=== PATIENT | female | born 1985 | race Caucasian/White ===

== ENCOUNTER 2018-06-15 20:12 | Emergency (ER) | payer OTHER, SELFPAY ==
[2018-06-15 20:32] VITALS: BP 113/73; PULSE 73; RESP 18; TEMP 36.8; O2SAT 98; BMI 32.5
--- NOTE | 2018-06-15 20:41 | DI.RAD.S_ITS ---
PROCEDURE: XR HAND RT 2V INDICATIONS: BROKE LIGHT TO HAND TECHNIQUE: 3 views of the hand(s) acquired. COMPARISON: None. FINDINGS: Bones: No fractures or dislocations. Carpal bones are normally aligned. No suspicious bony lesions. Soft tissues: No suspicious soft tissue calcifications. No radiopaque foreign body. IMPRESSION: No acute bony abnormality of the right hand. No evidence of radiopaque foreign body. Dictated by: Marc Taveras M.D. on 06/15/2018 at 21:52 Approved by: Marc Taveras M.D. on 06/15/2018 at 21:53
--- NOTE | 2018-06-15 21:45 | ED.WOUNDLAC ---
HPI - Wound/Laceration General Chief Complaint: Wound/Laceration Stated Complaint: RT HAND CUT Time Seen by Provider: 06/15/18 21:45 Source: patient Mode of arrival: ambulatory Limitations: no limitations History of Present Illness HPI narrative: 32-year-old female who was changing the light and only ample in the shade fell off and broke. Cutting herself on the back of her right hand. She is up-to-date on tetanus. Has done nothing for the wound prior to arrival. Related Data Allergies Allergy/AdvReac Type Severity Reaction Status Date / Time No Known Drug Allergies Allergy Verified 06/15/18 20:39 Review of Systems Musculoskeletal Denies myalgias, Denies arthralgias and Denies tingling Integumentary/Breasts Comments: Cut to the back of the right hand Neurologic Denies tingling and Denies paresthesias Hematologic/Lymphatic Denies easy bleeding and Denies easy bruising [facility] Medical History Healthy adult (Acute) Social History Smoking Status: Never smoker Social History Smoking Status: Never smoker Exam Initial Vital Signs Initial Vital Signs: Vital Signs Temperature 98.3 F 06/15/18 20:32 Pulse Rate 73 06/15/18 20:32 Respiratory Rate 18 06/15/18 20:32 Blood Pressure 113/73 06/15/18 20:32 Pulse Oximetry 98 06/15/18 20:32 Const General: cooperative, comfortable, well developed, well groomed and No acute distress Orientation: alert, awake and oriented x3 Skin Other: Patient with a 2 cm cut on the dorsum of the right hand at the base of the thumb. No active bleeding. Neuro Sensory Exam: no sensory deficits noted Extrem General: normal to inspection and capillary refill normal Psych Appearance: grossly normal and well kempt Procedures Laceration Repair Laceration 1: Site: hand Side (If applicable): right Size (cm): 2 Description: linear Depth: simple, single layer Local Anesthetic: lidocaine 1% Amount of anesthesia used (mL): 2 Pre-repair: wound explored and deep structures intact Skin layer closed with: nylon Size (cm): 3-0 Number of sutures: 2 Technique: simple, interrupted Course Orders Ordered: ED Orders 06/15/18 20:41 XR hand RT min 3V Stat Vital Signs - 8 hr 06/15/18 20:32 06/15/18 23:02 Temperature 98.3 F Pulse Rate 73 64 Respiratory Rate 18 17 Blood Pressure 113/73 Blood Pressure [Left Arm] 137/86 Pulse Oximetry 98 100 MDM - Wound/Laceration MDM Narrative Medical decision making narrative: Neurovascular intact. Wound closed as above. Patient given care instructions and return precautions. She expressed understanding and agreement with plan. Discharge Plan Departure Patient Disposition: Home Clinical Impression: Laceration Discharge Date/Time: 06/15/18 23:04 Interventions: ED Discharge Assessment Last Done: 06/15/18 23:04 Instructions: DI for Laceration Repair Activity Restrictions/Additional Instructions: Keep the bandage on for the next 24 hr. After that you can take it off. You can wash your hand like normal. He can use soap and water like normal. The stitches do need to be removed in 7-10 days. Return to the emergency department for any new or worsening symptoms
[2018-06-15 23:02] VITALS: BP 137/86; PULSE 64; RESP 17; O2SAT 100
== END 2018-06-15 23:04 | disposition home or self-care (01) ==
PROVIDERS: Emergency Provider Emergency Medicine
DX: S61.411A Laceration without foreign body of right hand, initial encounter (principal)
CPT/HCPCS: 12001; 73130; 99283

== ENCOUNTER 2018-08-29 15:17 | Emergency (ER) | payer OTHER, SELFPAY ==
[2018-08-29 15:25] VITALS: BP 124/78; PULSE 68; RESP 15; TEMP 36.7; O2SAT 99; BMI 34.7
--- NOTE | 2018-08-29 15:37 | ED.SOB ---
HPI - SOB/Dyspnea <Maddie Ford PA-C - Last Filed: 08/29/18 20:45> General Chief Complaint: Shortness of Breath/Dyspnea Stated Complaint: states hurts to breath Time Seen by Provider: 08/29/18 15:26 Source: patient Mode of arrival: ambulatory Limitations: no limitations History of Present Illness This 32-year-old female comes in to ED today secondary to cough and wheeze, with chest discomfort. She states that 6 months ago, she had an acute illness with GI symptoms and productive cough. She states that she got better, but the cough has been waxing and waning since then, never fully resolved. She states that her last 2 or 3 days, she has had worsening cough again, bringing up some white phlegm that has a bad taste. She states that yesterday she was out working on her riding lawnmower when she felt a burning sensation in her her airway ?not like my heart, but like breathing in cold air?. She states that she could feel some crackling wheezing in her lungs last night, denies acute dyspnea but chest feels somewhat tight at times. She is not having any pain currently. She states that she has not had any fever. She has had some postnasal drip and sneezing consistent with her previous seasonal allergies. She states she also has a history of some asthma with her allergies. She denies any swelling or pain in her extremities. Denies personal or family history of blood clots. She use to smoke sometime ago. She denies any possibility of , menses ended yesterday. Related Data Allergies Allergy/AdvReac Type Severity Reaction Status Date / Time No Known Drug Allergies Allergy Verified 08/29/18 15:25 Review of Systems <Maddie Ford PA-C - Last Filed: 08/29/18 20:45> Review of Systems ROS Unobtainable: All systems reviewed & are unremarkable except as noted in HPI and below PFSH <Maddie Ford PA-C - Last Filed: 08/29/18 20:45> Medical History (Updated 08/29/18 @ 16:58 by Maddie Ford PA-C) Asthma due to seasonal allergies (Chronic) Surgical History (Updated 08/29/18 @ 15:53 by Maddie Ford PA-C) Status post (Resolved) Status post breast augmentation (Resolved) Social History (Updated 08/29/18 @ 15:53 by Maddie Ford PA-C) Smoking Status: Former smoker Social History (Updated 08/29/18 @ 15:53 by Maddie Ford PA-C) Smoking Status: Former smoker Exam <Maddie Ford PA-C - Last Filed: 08/29/18 20:45> Narrative Exam Narrative: GENERAL APPEARANCE: Patient sitting comfortably, in no distress. HEAD: No sinus TTP. EYES: PERRL, EOMI. EARS: Normal auditory canals, TMS intact with normal light reflexes. ORAL CAVITY: Normal oropharynx. THROAT: PND noted, no erythema or exudate NECK/THYROID: Neck supple, full range of motion, no cervical lymphadenopathy. LUNGS: Clear to auscultation bilaterally aside from a few faint lower lobe crackles HEART: RRR without murmur, nl S1, S2, no S3 or S4. Initial Vital Signs Initial Vital Signs: Vital Signs Temperature 98.0 F 08/29/18 15:25 Pulse Rate 68 08/29/18 15:25 Respiratory Rate 15 08/29/18 15:25 Blood Pressure 124/78 08/29/18 15:25 Pulse Oximetry 99 08/29/18 15:25 <Kamlesh Steve DO - Last Filed: 08/31/18 08:19> Initial Vital Signs Initial Vital Signs: Vital Signs Temperature 98.0 F 08/29/18 15:25 Pulse Rate 68 08/29/18 15:25 Respiratory Rate 15 08/29/18 15:25 Blood Pressure 124/78 08/29/18 15:25 Pulse Oximetry 99 08/29/18 15:25 Course <Maddie Ford PA-C - Last Filed: 08/29/18 20:45> Additional Information: Patient is feeling markedly improved after nebulizer treatments and normal breath sounds on repeat exam. History consistent with reactive airways following viral illness and also exacerbation due to seasonal allergies. Advised continuing albuterol as needed as well as adding OTC antihistamine, and follow up with PCP in a few days. She is agreeable with this as well as plan to return if any acutely worsening symptoms in the interim Orders Ordered: Discontinued Medications Albuterol (Ventolin Hfa Prepack) 1 box [facility] [place] [place] Stop: 08/29/18 16:40 Last Admin: 08/29/18 16:49 Dose: 1 box Albuterol/Ipratropium (Duoneb) 3 ml INH NOW ONE Stop: 08/29/18 15:42 Last Admin: 08/29/18 15:43 Dose: 3 ml Vital Signs - 8 hr 08/29/18 15:25 08/29/18 15:43 08/29/18 15:48 Temperature 98.0 F 98.5 F Pulse Rate 68 70 72 Respiratory Rate 15 20 15 Blood Pressure 124/78 Blood Pressure [Left Arm] 119/88 Pulse Oximetry 99 98 100 08/29/18 16:44 Temperature 98.2 F Pulse Rate 81 Respiratory Rate 15 Blood Pressure 149/98 H Blood Pressure [Left Arm] Pulse Oximetry 99 <Kamlesh Steve DO - Last Filed: 08/31/18 08:19> Orders Ordered: Discontinued Medications Albuterol (Ventolin Hfa Prepack) 1 box [facility] SEEINSTR ONE Stop: 08/29/18 16:40 Last Admin: 08/29/18 16:49 Dose: 1 box Albuterol/Ipratropium (Duoneb) 3 ml INH NOW ONE Stop: 08/29/18 15:42 Last Admin: 08/29/18 15:43 Dose: 3 ml Vital Signs - 8 hr 08/29/18 15:25 08/29/18 15:43 08/29/18 15:48 Temperature 98.0 F 98.5 F Pulse Rate 68 70 72 Respiratory Rate 15 20 15 Blood Pressure 124/78 Blood Pressure [Left Arm] 119/88 Pulse Oximetry 99 98 100 08/29/18 16:44 Temperature 98.2 F Pulse Rate 81 Respiratory Rate 15 Blood Pressure 149/98 H Blood Pressure [Left Arm] Pulse Oximetry 99 MDM - SOB/Dyspnea <Maddie Ford PA-C - Last Filed: 08/29/18 20:45> Imaging Data Chest x-ray: Radiologist's impression: [address] [address] XRay Report Signed Patient: Juani Jo RMR#: [id number] : 1985Acct:[id number] Age/Sex: 32 / FDate of Service: 08/29/18 Loc: ED Accession Number: [id number] Procedure: XR chest 2V Ordering Provider: Maddie Ford P.A-C PROCEDURE: XR CHEST 2V INDICATIONS: chronic cough TECHNIQUE: 2 views of the chest were acquired. COMPARISON: None. FINDINGS: Surgical changes and devices: None. Lungs and pleura: Lungs are clear. No pleural effusions or pneumothorax. Mediastinum: Mediastinal contours are normal. Heart size is normal. Bones and chest wall: No suspicious bony abnormalities. Soft tissues appear unremarkable. IMPRESSION: Normal chest plain films. No infiltrates. Dictated by: Karan Kim M.D. on 08/29/2018 at 15:19 Approved by: Karan Kim M.D. on 08/29/2018 at 15:20 ECG Data Attestation: I personally reviewed and interpreted this ECG as follows: (Sinus bradycardia with rate 55, normal axis) Prior ECG tracings: not available for review Discharge Plan Departure Patient Disposition: Home Clinical Impression: Asthma due to seasonal allergies Discharge Date/Time: 08/29/18 17:10 Interventions: ED Discharge Assessment Last Done: 08/29/18 17:09 Instructions: Allergic Rhinitis, DI for Asthma -- Adult Activity Restrictions/Additional Instructions: Given your history of being sick and then developing chronic cough, discomfort and breathing difficulty, I think this is due to an asthma type of reaction that has been exacerbated by allergies. You can return home since you are feeling better after the breathing treatments. There was no acute problem found on your chest x-ray. Please start [id number] Zyrtec (cetirizine, 10 mg), once daily to help with your nasal symptoms and postnasal drip as this may help with the cough as well. Use the albuterol inhaler that we gave you with the spacer as often as needed for tight chest, cough or wheeze. Follow-up with your PCP in the next few days to assess your progress and determine whether you need additional treatment or medication. Return to the ED as we talked about if you have any acutely worsening symptoms again The best of luck with your fertility treatments. Referrals: [email or web address] [Provider Group] <Kamlesh Steve DO - Last Filed: 08/31/18 08:19> Cosign ED Attending Rangelature Attestation: I was immediately available in the department for consultation. Documentation has been reviewed. I agree with assessment and plan.
[2018-08-29 15:43] VITALS: BP 119/88; PULSE 70; RESP 20; TEMP 36.9; O2SAT 98
[2018-08-29] MEDS: ALBUTEROL/IPRATROPIUM 3 ML AMPUL INH (15:43)
[2018-08-29 15:48] VITALS: PULSE 72; RESP 15; O2SAT 100
--- NOTE | 2018-08-29 15:54 | ED_ITS ---
HPI - SOB/Dyspnea <Maddie Ford PA-C - Last Filed: 08/29/18 20:45> General Chief Complaint: Shortness of Breath/Dyspnea Stated Complaint: states hurts to breath Time Seen by Provider: 08/29/18 15:26 Source: patient Mode of arrival: ambulatory Limitations: no limitations History of Present Illness This 32-year-old female comes in to ED today secondary to cough and wheeze, with chest discomfort. She states that 6 months ago, she had an acute illness with GI symptoms and productive cough. She states that she got better, but the cough has been waxing and waning since then, never fully resolved. She states that her last 2 or 3 days, she has had worsening cough again, bringing up some white phlegm that has a bad taste. She states that yesterday she was out working on her riding lawnmower when she felt a burning sensation in her her airway ?not like my heart, but like breathing in cold air?. She states that she could feel some crackling wheezing in her lungs last night, denies acute dyspnea but chest feels somewhat tight at times. She is not having any pain currently. She states that she has not had any fever. She has had some postnasal drip and sneezing consistent with her previous seasonal allergies. She states she also has a history of some asthma with her allergies. She denies any swelling or pain in her extremities. Denies personal or family history of blood clots. She use to smoke sometime ago. She denies any possibility of , menses ended yesterday. Related Data Allergies Allergy/AdvReac Type Severity Reaction Status Date / Time No Known Drug Allergies Allergy Verified 08/29/18 15:25 Review of Systems <Maddie Ford PA-C - Last Filed: 08/29/18 20:45> Review of Systems ROS Unobtainable: All systems reviewed & are unremarkable except as noted in HPI and below PFSH <Maddie Ford PA-C - Last Filed: 08/29/18 20:45> Medical History (Updated 08/29/18 @ 16:58 by Maddie Ford PA-C) Asthma due to seasonal allergies (Chronic) Surgical History (Updated 08/29/18 @ 15:53 by Maddie Ford PA-C) Status post (Resolved) Status post breast augmentation (Resolved) Social History (Updated 08/29/18 @ 15:53 by Maddie Ford PA-C) Smoking Status: Former smoker Social History (Updated 08/29/18 @ 15:53 by Maddie Ford PA-C) Smoking Status: Former smoker Exam <Maddie Ford PA-C - Last Filed: 08/29/18 20:45> Narrative Exam Narrative: GENERAL APPEARANCE: Patient sitting comfortably, in no distress. HEAD: No sinus TTP. EYES: PERRL, EOMI. EARS: Normal auditory canals, TMS intact with normal light reflexes. ORAL CAVITY: Normal oropharynx. THROAT: PND noted, no erythema or exudate NECK/THYROID: Neck supple, full range of motion, no cervical lymphadenopathy. LUNGS: Clear to auscultation bilaterally aside from a few faint lower lobe crackles HEART: RRR without murmur, nl S1, S2, no S3 or S4. Initial Vital Signs Initial Vital Signs: Vital Signs Temperature 98.0 F 08/29/18 15:25 Pulse Rate 68 08/29/18 15:25 Respiratory Rate 15 08/29/18 15:25 Blood Pressure 124/78 08/29/18 15:25 Pulse Oximetry 99 08/29/18 15:25 <Kamlesh Steve DO - Last Filed: 08/31/18 08:19> Initial Vital Signs Initial Vital Signs: Vital Signs Temperature 98.0 F 08/29/18 15:25 Pulse Rate 68 08/29/18 15:25 Respiratory Rate 15 08/29/18 15:25 Blood Pressure 124/78 08/29/18 15:25 Pulse Oximetry 99 08/29/18 15:25 Course <Maddie Ford PA-C - Last Filed: 08/29/18 20:45> Additional Information: Patient is feeling markedly improved after nebulizer treatments and normal breath sounds on repeat exam. History consistent with reactive airways following viral illness and also exacerbation due to seasonal allergies. Advised continuing albuterol as needed as well as adding OTC antihistamine, and follow up with PCP in a few days. She is agreeable with this as well as plan to return if any acutely worsening symptoms in the interim Orders Ordered: Discontinued Medications Albuterol (Ventolin Hfa Prepack) 1 box [facility] [place] Stop: 08/29/18 16:40 Last Admin: 08/29/18 16:49 Dose: 1 box Albuterol/Ipratropium (Duoneb) 3 ml INH NOW ONE Stop: 08/29/18 15:42 Last Admin: 08/29/18 15:43 Dose: 3 ml Vital Signs - 8 hr 08/29/18 15:25 08/29/18 15:43 08/29/18 15:48 Temperature 98.0 F 98.5 F Pulse Rate 68 70 72 Respiratory Rate 15 20 15 Blood Pressure 124/78 Blood Pressure [Left Arm] 119/88 Pulse Oximetry 99 98 100 08/29/18 16:44 Temperature 98.2 F Pulse Rate 81 Respiratory Rate 15 Blood Pressure 149/98 H Blood Pressure [Left Arm] Pulse Oximetry 99 <Kamlesh Steve DO - Last Filed: 08/31/18 08:19> Orders Ordered: Discontinued Medications Albuterol (Ventolin Hfa Prepack) 1 box [facility] SEEINSTR ONE Stop: 08/29/18 16:40 Last Admin: 08/29/18 16:49 Dose: 1 box Albuterol/Ipratropium (Duoneb) 3 ml INH NOW ONE Stop: 08/29/18 15:42 Last Admin: 08/29/18 15:43 Dose: 3 ml Vital Signs - 8 hr 08/29/18 15:25 08/29/18 15:43 08/29/18 15:48 Temperature 98.0 F 98.5 F Pulse Rate 68 70 72 Respiratory Rate 15 20 15 Blood Pressure 124/78 Blood Pressure [Left Arm] 119/88 Pulse Oximetry 99 98 100 08/29/18 16:44 Temperature 98.2 F Pulse Rate 81 Respiratory Rate 15 Blood Pressure 149/98 H Blood Pressure [Left Arm] Pulse Oximetry 99 MDM - SOB/Dyspnea <Maddie Ford PA-C - Last Filed: 08/29/18 20:45> Imaging Data Chest x-ray: Radiologist's impression: [address] [address] XRay Report Signed Patient: Juani Jo RMR#: [id number] : 1985Acct:[id number] Age/Sex: 32 / FDate of Service: 08/29/18 Loc: ED Accession Number: [id number] Procedure: XR chest 2V Ordering Provider: Maddie Ford P.A-C PROCEDURE: XR CHEST 2V INDICATIONS: chronic cough TECHNIQUE: 2 views of the chest were acquired. COMPARISON: None. FINDINGS: Surgical changes and devices: None. Lungs and pleura: Lungs are clear. No pleural effusions or pneumothorax. Mediastinum: Mediastinal contours are normal. Heart size is normal. Bones and chest wall: No suspicious bony abnormalities. Soft tissues appear unremarkable. IMPRESSION: Normal chest plain films. No infiltrates. Dictated by: Karan Kim M.D. on 08/29/2018 at 15:19 Approved by: Karan Kim M.D. on 08/29/2018 at 15:20 ECG Data Attestation: I personally reviewed and interpreted this ECG as follows: (Sinus bradycardia with rate 55, normal axis) Prior ECG tracings: not available for review Discharge Plan Departure Patient Disposition: Home Clinical Impression: Asthma due to seasonal allergies Discharge Date/Time: 08/29/18 17:10 Interventions: ED Discharge Assessment Last Done: 08/29/18 17:09 Instructions: Allergic Rhinitis, DI for Asthma -- Adult Activity Restrictions/Additional Instructions: Given your history of being sick and then developing chronic cough, discomfort and breathing difficulty, I think this is due to an asthma type of reaction that has been exacerbated by allergies. You can return home since you are feeling better after the breathing treatments. There was no acute problem found on your chest x-ray. Please start [id number] Zyrtec (cetirizine, 10 mg), once daily to help with your nasal symptoms and postnasal drip as this may help with the cough as well. Use the albuterol inhaler that we gave you with the spacer as often as needed for tight chest, cough or wheeze. Follow-up with your PCP in the next few days to assess your progress and determine whether you need additional treatment or medication. Return to the ED as we talked about if you have any acutely worsening symptoms again The best of luck with your fertility treatments. Referrals: [facility] [Provider Group] <Kamlesh Steve DO - Last Filed: 08/31/18 08:19> Cosign ED Attending Rangelature Attestation: I was immediately available in the department for consultation. Documentation has been reviewed. I agree with assessment and plan.
[2018-08-29 16:44] VITALS: BP 149/98; PULSE 81; RESP 15; TEMP 36.8; O2SAT 99
[2018-08-29] MEDS: ALBUTEROL HFA PREPACK 1 BOX MISC (16:49)
== END 2018-08-29 17:10 | disposition home or self-care (01) ==
PROVIDERS: Emergency Provider Internal Medicine
DX: J45.909 Unspecified asthma, uncomplicated (principal); R07.89 Other chest pain
CPT/HCPCS: 71046; 93005; 94150; 94640; 99283

== ENCOUNTER → 2019-06-01 14:05 | Outpatient (CLI) | payer OTHER, SELFPAY ==
[2019-06-02 13:02] LABS: Strep Grp B PCR NEG for Grp B Strep
== END ==
PROVIDERS: Visit Provider Obstetrics & Gynecology
DX: Z34.83 Encounter for supervision of other normal pregnancy, third trimester (principal); Z3A.36 36 weeks gestation of pregnancy
CPT/HCPCS: 87653

== ENCOUNTER 2019-06-01 15:00 | Outpatient (CLI) | payer OTHER, SELFPAY | END 2019-06-01 15:41 | disposition home or self-care (01) | LOC: OB 06-02 08:23 | PROVIDERS: Referring Provider Obstetrics & Gynecology; Visit Provider Obstetrics & Gynecology | DX: O36.8330 Maternal care for abnormalities of the fetal heart rate or rhythm, third trimester, not applicable or unspecified (principal); Z3A.36 36 weeks gestation of pregnancy | CPT/HCPCS: 59025; 87653; G0378; G0379 ==

== ENCOUNTER → 2019-06-08 14:35 | Outpatient (CLI) | payer OTHER, SELFPAY ==
--- NOTE | 2019-06-08 14:37 | DI.US.S_ITS ---
PROCEDURE: US OB LIMITED INDICATIONS: EFW; SHEA OUTSIDE/PRIOR DATING DATA: Last menstrual period (LMP): Not applicable. IVF. LMP-based estimated date of delivery (RENETTA): 06/29/19. First dating scan (date and location): Outside examination, not available. Estimated date of delivery (RENETTA) from first dating scan: 05/24/19. TECHNIQUE: Real-time scanning was performed of the fetus, with image documentation and biometric measurements. Endovaginal scanning: Not performed COMPARISON: None. FINDINGS: General: A single living intrauterine gestation is present. Presentation: Vertex. Placenta: Placental position is anterior, without previa. Amniotic fluid index: 7.0 cm, normal range is 5-24 cm. heart rate: 122 beats per minute. biometrics: Biparietal diameter: 9.1 cm, 37 weeks zero days Head circumference: 33.5 cm, 38 weeks 3 days Abdominal circumference: 35.8 cm, 39 weeks 5 days Femur length: 7.3 cm, 37 weeks 3 days Estimated gestational age from initial scan: not applicable. Composite gestational age from present scan: 38 weeks one day Estimated weight and percentile: 3582 g, 92nd percentile Measurement variability for biometric dating: +/- 7 days from 14 weeks to 15 weeks 6 days gestation, +/- 10 days from 16 weeks to 21 weeks 6 days gestation, +/- 2 weeks from 22 weeks to 27 weeks 6 days gestation, +/- 3 weeks for 28 weeks gestation or later. weight reference: 4500 g or EFW >90/95% is considered macrosomia or large for gestational age. EFW <10% is small for gestational age. EFW 5% or less is considered intra-uterine growth restriction. Other: Not applicable. IMPRESSION: Single living intrauterine fetus in vertex presentation demonstrating appropriate growth as above Normal SHEA Dictated by: Adan Paz M.D. on 06/08/2019 at 15:24 Approved by: Adan Paz M.D. on 06/08/2019 at 15:27
== END ==
PROVIDERS: PCP Oral & Maxillofacial Surgery; Referring Provider Obstetrics & Gynecology; Visit Provider Obstetrics & Gynecology
DX: O09.813 Supervision of pregnancy resulting from assisted reproductive technology, third trimester (principal); O34.219 Maternal care for unspecified type scar from previous cesarean delivery; Z3A.38 38 weeks gestation of pregnancy
CPT/HCPCS: 76815

== ENCOUNTER 2019-06-27 06:21 | Inpatient (IN) | payer OTHER, SELFPAY ==
--- NOTE | 2019-06-15 19:45 | PM.OBHP.1 ---
OB HPI Date/Time Date of admission: 06/27/19 Date Patient Seen: 06/15/19 Time Patient Seen: 09:19 History of Present Condition Chief complaint: [id number] REPEAT : 3 Para: 2 Estimated Date of Delivery: 06/29/19 Estimated Gestational Age (weeks): 39 Narrative: Juani Jo is a 33 year old female who is being admitted at 39 weeks for a repeat . Her RENETTA is 06/29/2019, calculated from her IVF date. She has a history of x2. Her has been uncomplicated. History of Present care: good care Dating criteria: other (Based on date of transfer of five-day embryo, IVF) Ultrasounds: normal 1st trimester US and normal mid trimester US Obstetrical complications: none Medical complications: none Preadmission Labs Blood type: A (+) positive -: Antibody screen: negative, GBS status: negative and HIV: negative -: Chlamydia screen: not detected and Gonorrhea screen: not detected -: Rubella: immune and Varicella: immune Narrative: 1 hour Glucola normal Prior (ies) History: section x2, both at term [facility] Medical History (Updated 06/01/19 @ 15:05 by Anya Sprague MD) Anxiety (Acute) Asthma due to seasonal allergies (Chronic) Conceived by in vitro fertilization (Acute ~10/11/18) Depression (Acute) Frequent UTI (Acute) In vitro fertilization (Acute ~2018) Ovarian cyst (Acute) conceived through in vitro fertilization (Acute) Surgical History (Updated 04/27/19 @ 19:43 by Anya Sprauge MD) Hx of section complicating (Acute) Status post breast augmentation (Resolved ~2010) Status post (Resolved) [place] teeth extracted (Acute ~2007) Family History (Updated 04/25/19 @ 12:06 by Shannan Chou RN) Grandmother Unknown family medical history Mother Acute Crohn's disease Grandfather Diabetes mellitus Cancer Grandmother Acute Crohn's disease Father Hepatitis C Brother Bipolar 1 disorder Social History (Updated 08/29/18 @ 15:53 by Maddie Ford PA-C) marital status: number of children: 2 household members: spouse and children pets and animals: Yes (cats X 2 and dogs ) education level: college (some) occupational status: employed special [employer] needs: No Smoking Status: Former smoker (off and on socially : more on deployement ) Tobacco: How many years used: 12 second hand exposure: No ( smokes - aware and outside) alcohol intake: former (started at age 17 - stopped 10/21/2018) substance use type: does not use Meds Home Medications and Allergies Home Medications Medication Instructions Recorded Confirmed Type prenat.vits,iris,jus-jnzx-akxje 1 tab PO DAILY #90 tab 04/27/19 06/15/19 Rx Allergies Allergy/AdvReac Type Severity Reaction Status Date / Time No Known Drug Allergies Allergy Verified 06/15/19 08:45 Review of Systems Review of Systems Narrative: Denies leakage of fluid, vaginal bleeding or regular contractions. Feels good movement. Denies shortness of breath, fever or cough. Exam Vital Signs (past 8 hours): On 06/14 BP 120/60 Narrative Exam Narrative: General: Well-appearing female in no acute distress Heart: Regular rate rhythm, negative for audible murmur Lungs: Clear to auscultation bilaterally Abdomen: Gravid, nontender. Fundus nontender, FHT are auscultated in 140s Extremities 1+ pedal edema, no calf tenderness Assessment and Plan Assessment and Plan Assessment and Plan narrative: Thirty-nine week , history of x2, for repeat for delivery scheduled on 06/27/2019 Plan: Repeat section NPO after midnight SCDs in the OR CBC/type and screen to be drawn day of the procedure NST to be performed in L&D prior to the procedure I reviewed section procedure with her. Discussed surgical risks of the procedure including bleeding, infection, injury to internal organs including bowel and urinary system, discuss urinary system includes bladder and ureters. I also discussed small risk of injury to the baby. Discussed risk of blood transfusion if she had heavy bleeding that was life threatening, she confirms that she would desire a blood transfusion if needed. Verbal and written consent obtained
[2019-06-27] VITALS (8 sets, daily range): BP systolic 109–128; BP diastolic 69–79; PULSE 58–82; RESP 9–18; TEMP 36.1; O2SAT 94–99
[2019-06-27] MEDS: LACTATED RINGERS 1,000 ML 1000 ML IV (07:00)
[2019-06-27 07:20] LABS: Add Manual Diff / Slide Review NO; Basophils Absolute Auto 100 /uL (0-100); Basophils Percent Auto 0.9 % (0-2); Eosinophils Absolute Auto 200 /uL (0-450); Eosinophils Percent Auto 1.3 % (2-4); Hematocrit 39.6 % (36-46); Hemoglobin 13.6 g/dL (12.0-16.0); Lymphocytes Absolute Auto 2600 /uL (1100-4500); Lymphocytes Percent Auto 19.4 % (25-40); Mean Corpuscular HGB Conc 34.3 % (30-36); Mean Corpuscular Hemoglobin 32.3 PG (26-34); Mean Corpuscular Volume 94.1 fL (80-100); Monocytes Absolute Auto 1000 /uL (0-900); Monocytes Percent Auto 7.7 % (3-14); Neutrophils Absolute Auto 9500 /uL (1500-7000); Neutrophils Percent Auto 70.7 % (50-75); Platelet Count 181 X10^3/uL (150-400); Red Cell Distribution Width 12.9 % (11.6-14.8); White Blood Cell Count 13.4 X10^3/uL (4.5-11.0)
--- NOTE | 2019-06-27 07:25 | PM.PREOP ---
Pre-operative Note Interval Note History & Physical reviewed/Exam performed by Physician: Yes Changes to H&P: No
[2019-06-27] MEDS: CEFAZOLIN 2 GM/100 ML FROZ.PIGGY IV (08:00)
--- NOTE | 2019-06-27 08:27 | SUR.OPER ---
Supine on Padded OR bed, head on pillow, safety belt at thigh, arms secured on padded arm boards at <90 degrees abduction. Bump under right buttock. Legs uncrossed with pillow under knees, gel pad to heels, tape over blanket to lower legs.
--- NOTE | 2019-06-27 08:27 | SUR.OPER ---
FHT's 134. Cord blood and placenta to OB with L&D Rn.
[2019-06-27] MEDS: LACTATED RINGERS 1,000 ML 100 ML IV ×2 (08:28→09:06)
--- NOTE | 2019-06-27 08:53 | SUR.OPER ---
TOB live male @ [phone].
--- NOTE | 2019-06-27 10:03 | P.OP_ITS ---
Operative Date/Time/Diagnoses Date of procedure: 06/27/19 Time of procedure: 10:00 Pre-op diagnosis: 39 week , prior x2, desires repeat C- section for delivery Post-op diagnosis: same Procedure & Clinicians Procedure: Repeat lower transverse section Same procedure as scheduled: Yes Indications: History of section x 2, desires repeat section for delivery, term Surgeon: Anya Sprague Art Gallery Director: Angela Vidal Click Yes if Unassisted: No Anesthesia Type: Spinal Operative Notes Findings: very thin lower uterine segmant. Normal uterus otherwise and normal tubes and ovaries. Vigorous viable male infant delivered, weighing 9 lb 9 oz Closure Type: primary Specimen(s): other (cord blood to lab) Estimated Blood Loss (mL): 700 Procedure in detail: IV fluids: 2500 ml crystalloid Description of procedure: The patient was transferred from the center to the operating room. After an adequate level of spinal anesthesia was obtained, she was placed in the supine position, Drake catheter was placed, and she was prepped and draped in routine sterile fashion. FHR was auscultated and was normal after the spinal anaesthesia. Time-out was taken and the patient procedure was identified. Anesthesia level was tested and was adequate. A Pfannenstiel skin incision was made in the lower abdomen through her prior transverse skin incision and carried down to the level of the fascia. The fascia was incised in the midline and was extended transversely. The superior and inferior edges of the fascia were elevated and dissected off the rectus muscles with sharp and blunt dissection. The muscles were severely scarred to the fascia and scarred in the midline. There was a slight separation, diathesis superiorly. With palpation through the diastasis, some omentum was noted to be adherent to the inferior peritoneum beneath the muscles superiorly. With care with elevating the muscles, the scar tissue was dissected and the muscles and parietal peritoneum were then further bluntly in the midline. The bladder blade was placed. The visceral peritoneum was elevated off the lower uterus, incised and the bladder flap was bluntly created. The bladder blade retractor was re-placed. The lower uterine segment was noted to be thin over the vertex. A transverse incision was made in the lower uterus and final entry into the uterus was performed with the handle of the scalpel bluntly. The uterine incision was extended transversely with blunt dissection. Some light meconium was noted over the baby's head, but overall fluid appeared clear. The head was not engaged. It was elevated to the uterine incision but would not deliver with fundal cyst ends. A kiwi vacuum was placed and within an initial attempt the head was not delivered with fundal assistance. On palpation it was felt that the incision was a little tight at the level of the muscles yet for the head to deliver through, he uterine incision felt adequate. The Ramachandran scissors were used and a transverse cut was made through her right rectus muscles, approximately 3 cm. Mushroom vacuum was replaced on the head and with vacuum and fundal cyst since, the head was delivered through the incision. Nuchal cord x1 was reduced. Both shoulders were then delivered without difficulty followed by the remainder of the body. Cord was clamped and cut. The cried spontaneously, was vigorous and was shown to the parents prior to handing off to respiratory therapy who was present for delivery for care. Cord blood was obtained a specimen. The placenta was manually removed. It appeared intact with a normal three-vessel cord. Attention was 1st placed to her right rectus muscles as a source of initial heavier bleeding. There was a visible vessel bleeding which was grasped on both sides with a hemostatic. Each side of vessel was ligated with a qfyejh-nx-eejee suture of 3- 0 Vicryl, placed through the muscle and around the vessel. Good hemostasis was obtained in this area. The uterus was brought through the abdominal incision and using a moist laparotomy sponge, was swept of clots and membrane. The uterus was closed in 1 layer with 0 Vicryl, in running locking continuous fashion. The inferior portion of the uterus that needed to be sutured to the superior portion was noted to be extremely thin. Sutures were pulled through gently and the incision was closed in the 1 layer. There was still an area of persistent bleeding on the left side of the incision which was controlled with a xeqocj-fw-caonx suture of 0 Vicryl. Hemostasis was then noted. The tubes and ovaries were inspected and noted to be normal. Posterior to the uterus was suctioned of some minimal blood and fluid. The uterus was placed back into the maternal abdomen. The paracolic gutters were inspected and wiped of some minimal blood and fluid. The anterior cul-de-sac was inspected and some clot was removed. The uterine incision was re- inspected. There was a focal area of some light bleeding along her left uterine incision, and this was controlled with an additional dphrni-hi-tkrcm suture of 0 Vicryl. Hemostasis then remained. The pelvis was irrigated. Repeat inspection showed continued hemostasis. Hemostasis was also noted at the level the muscles and the inferior surface of the fascia. The abdomen was then closed. The fascia was closed with running continuous suture of 0 Vicryl. The subcutaneous tissue was reapproximated by reapproximating Sary's fascia with running 3-0 Vicryl. The skin was closed with a subcuticular suture of 4-0 Monocryl. Steri-Strips and sterile Aquacel dressing was placed. She tolerated the procedure well and went to the recovery room in stable condition. Complications: none Post-operative Condition: stable Disposition: PACU Plan for aftercare: Transferred subsequently to floor
[2019-06-27] MEDS: HYDROMORPHONE 2 MG INJ IV ×2 (10:08→10:14)
[2019-06-27] MEDS: fentaNYL 100 MCG/2 ML INJ IV ×2 (10:08→10:13)
--- NOTE | 2019-06-27 10:36 | SUR.PHASEI ---
REPORT CALLED TO JUAN C WILKINSON IN CENTER. PT IN STABLE CONDITION, VSS. PT LAYING IN BED WITH EYES CLOSED, EASILY AROUSABLE TO VOICE WHEN SPOKEN TO. PT TOLERATING ICE CHIPS WITHOUT ANY DIFFICULTLY. PT REPORTS PAIN IS MUCH BETTER AND CAN TOLERATE PAIN LEVEL AT THIS TIME. CATHETER SECURE AND DRAINING CLEAR YELLOW URINE. DRSG OBSERVED TO BE C/D/I. PT WILL BE TRANSFERRED TO CENTER IN APPROX 10 MINUTES.
--- NOTE | 2019-06-27 10:54 | SUR.PHASEI ---
pt transferred to center in stable condition. pt alert and talking to rn. Upon arrival to room, pt and baby at bedside. Bedside report given to JUAN C Cagle and transferred care of pt to her at that time.
[2019-06-27] MEDS: DEXTROSE 5%-LACTATED RINGERS 1,000 ML 100 ML IV ×2 (11:03→18:46)
[2019-06-27] MEDS: OXYCODONE/ACETAMINOPHEN 5/325 TABLET 2 TAB PO ×4 (11:31→20:03)
[2019-06-27] MEDS: KETOROLAC 30 MG/ML VIAL IV ×2 (16:32→22:43)
[2019-06-27] MEDS: SIMETHICONE 80 MG TABLET PO ×2 (16:49→23:44)
[2019-06-27] MEDS: DOCUSATE 250 MG CAPSULE PO (19:55)
[2019-06-28] MEDS: OXYCODONE/ACETAMINOPHEN 5/325 TABLET 2 TAB PO ×6 (00:12→21:33)
[2019-06-28] MEDS: KETOROLAC 30 MG/ML VIAL IV (05:05)
[2019-06-28 07:31] LABS: Hematocrit 32.6 % (36-46); Hemoglobin 11.2 g/dL (12.0-16.0)
[2019-06-28] MEDS: DOCUSATE 250 MG CAPSULE PO (09:15)
--- NOTE | 2019-06-28 11:40 | PM.OBPN.1 ---
Subjective - OB Subjective Patient comments: no complaints, pain well controlled, tolerating diet and flatus present baby status: doing well and nursing well [place] feeding status: exclusively breast feeding Narrative: Gita reports that she feels well. Did not sleep much last night as baby was breast-feeding every hour, but slept a few hours this morning. Noted some increased blood and small clots when use the toilet. Only changing her pad however every few hours. Voided a few times without difficulty since Drake came out. Moods are good, reports being very happy. Date Patient Seen: 06/28/19 Time Patient Seen: 11:15 Exam Vital Signs (past 8 hours): Afebrile, temp 97.7?, BP 117/65, pulse 100. Urine output 1600 over 6 hours, prior to Drake removal Oxygen Delivery Method Room Air Narrative Exam Narrative: General: Well-appearing Abdomen soft, nondistended. Dressing dry, intact Fundus U at umbilicus firm, nontender Extremities: Trace pedal edema. No calf tenderness bilaterally Objective Labs Result Diagrams: 06/28/19 07:21 Labs: Laboratory Results - last 24 hr 06/28/19 07:21 Hgb 11.2 L Hct 32.6 L Assessment & Plan Plan day: 1 plan OB: routine postop care Comments: Doing well. Increased ambulation today. Discussed that she may shower, prefers to wait until tomorrow. Anticipate discharge home tomorrow. Reviewed expected postop progress at home per questions. Discussed continue Colace as a stool softener, good water and fiber in her diet while using the Percocet, to prevent constipation. Also discussed good water intake for adequate milk supply. Time Spent With Patient Time: 10 minutes. Total time spent is greater than 50% in coordination of care (as documented) at patient's floor/unit and/or counseling patient: Time with patient: less than 15 minutes
[2019-06-28] MEDS: IBUPROFEN 600 MG TABLET PO ×2 (12:40→18:50)
[2019-06-29] MEDS: IBUPROFEN 600 MG TABLET PO ×4 (01:27→20:49)
[2019-06-29] MEDS: OXYCODONE/ACETAMINOPHEN 5/325 TABLET 2 TAB PO ×5 (01:27→20:49)
[2019-06-29] MEDS: DOCUSATE 250 MG CAPSULE PO (07:54)
--- NOTE | 2019-06-29 09:34 | P.PN_ITS ---
Subjective Subjective Date Patient Seen: 06/29/19 Time Patient Seen: 07:50 Interval history: Overall feeling well. Feels more fatigued today as baby was still up most tonight, feeding frequently. Baby has dropped 10% of weight, so may be recommended to supplement today, await the slot machine key person. She otherwise feels well, incisional discomfort controlled with oxycodone. Lochia normal, tolerating p.o.s. No fever or chills. Exam Vital Signs (past 8 hours): Afebrile, BP normal Oxygen Delivery Method Room Air Narrative Exam Narrative: General: Well-appearing female Abdomen soft, nontender, nondistended dressing is dry, intact fundus U=0, firm, nontender Extremities trace pedal edema Objective Labs Result Diagrams: 06/28/19 07:21 Assessment & Plan Assessment and plan (1) Status post section: Current visit: Yes Status: Acute Assessment & Plan narrative: POD 2, doing well. Continue current postop care. Increase ambulation. Anticipate discharge home tomorrow.
[2019-06-29] MEDS: MAGNESIUM HYDROXIDE 30 ML UDC PO (21:14)
--- NOTE | 2019-06-30 10:08 | P.PNOB_ITS ---
Subjective - OB Subjective Patient comments: no complaints, pain well controlled, tolerating diet and flatus present baby status: doing well and nursing well [place] feeding status: exclusively breast feeding Narrative: Reports that she feels well. Baby slept more last night so she had more breast. Did not need to supplement, exclusively breast feeding. Denies fever, chills, or nausea. Tolerating a regular diet. No BM yet but still passing flatus. Lochia is normal. Date Patient Seen: 06/30/19 Time Patient Seen: 09:30 Exam Vital Signs (past 8 hours): Afebrile, Temperature 98.7? BP 121/71 pulse 73 respiratory rate 17 Oxygen Delivery Method Room Air Narrative Exam Narrative: General: Well-appearing female Abdomen: Soft, nontender, except mild expected alessio-incisional tenderness nondistended. There is a triangular area above her incision with a mild older ecchymosis centrally, surrounded by 1-2 cm of pinkness, possible erythema. Area is not warm to touch. Dressing removed. Remainder incision is without any noted erythema. There is older bruising inferior to the incision. Incision is intact and without drainage Fundus: U-1, firm, nontender Extremities: No edema Objective Labs Result Diagrams: 06/28/19 07:21 Assessment & Plan Assessment and Plan (1) Status post section: Problem details: Doing well, discharged home today Triangular area superior to the incision was more, appears likely just bruising but with questionable peripheral erythema, she will watch this and call me if it starts to extend. Follow-up appointment with me in 4 days. Follow-up appointment Status: Acute Current Visit: Yes Time Spent With Patient Time: Total time spent is greater than 50% in coordination of care (as documented) at patient's floor/unit and/or counseling patient: 20 minutes Time with patient: 15-24 minutes
[2019-06-30 10:54] VITALS: BP 121/70; PULSE 73; RESP 17; TEMP 36.8
== END 2019-06-30 12:50 | disposition home or self-care (01) | DRG 788 ==
PROVIDERS: Admitting Provider Obstetrics & Gynecology; PCP Oral & Maxillofacial Surgery; Referring Provider Obstetrics & Gynecology; Visit Provider Obstetrics & Gynecology
PROC: 10D00Z1 Extraction of Products of Conception, Low, Open Approach (ICD-10-PCS; CPT 59514; principal; 2019-06-27 07:45)
DX: O34.219 Maternal care for unspecified type scar from previous cesarean delivery (principal); Z3A.39 39 weeks gestation of pregnancy; Z37.0 Single live birth; E66.9 Obesity, unspecified; K21.9 Gastro-esophageal reflux disease without esophagitis; F41.9 Anxiety disorder, unspecified
CPT/HCPCS: 36415; 59050; 59514; 59515; 85014; 85018; 85025; 86850; 86900; 86901; J0690; J1170; J1885; J2250; J2590; J2704; J3010; J7121

== ENCOUNTER 2020-10-22 07:51 | Emergency (ER) | payer OTHER, SELFPAY ==
[2020-10-22 07:55] VITALS: BP 117/57; PULSE 98; RESP 18; TEMP 36.8; O2SAT 98; BMI 31.1
[2020-10-22 09:42] LABS: Adenovirus Not Detected (Not Detect); B. parapertussis Not Detected (Not Detecte); Bordetella pertussis Not Detected (Not Detecte); Chlamydophila pneumoniae Not Detected (Not Detect); Coronavirus 229E Not Detected (Not Detect); Coronavirus HKU1 Not Detected (Not Detect); Coronavirus NL 63 Not Detected (Not Detect); Coronavirus OC43 Not Detected (Not Detect); Human Metapneumovirus Not Detected (Not Detect); Human Rhinovirus/Enterovirus Not Detected (Not Detect); Influenza A Not Detected (Not Detect); Influenza B Not Detected (Not Detect); Mycoplasma pneumoniae Not Detected (Not Detect); Parainfluenza Virus 1 Not Detected (Not Detect); Parainfluenza Virus 2 Not Detected (Not Detect); Parainfluenza Virus 3 Not Detected (Not Detect); Parainfluenza Virus 4 Not Detected (Not Detect); SARS- CoV-2 Not Detected (Not Detecte)
[2020-10-22 09:43] LABS: Respiratory Syncytial Virus Detected (Not Detect)
--- NOTE | 2020-10-22 10:45 | ED_ITS ---
HPI - URI/Sore Throat General Chief Complaint: Upper Respiratory Symptoms Stated Complaint: covid symptoms Time Seen by Provider: 10/22/20 10:44 Source: patient Mode of arrival: Ambulatory Limitations: no limitations History of Present Illness HPI Narrative: This is a 35-year-old female who comes in with complaint of respiratory symptoms. Patient has had some chest discomfort, nonproductive cough. She has been afebrile. She denies much congestion although she sounds quite congested. Patient denies any current shortness of breath. No nausea or vomiting. No other GI or urinary symptoms. She states that her child was diagnosed with RSV several days ago here in the emergency department. Patient states she is also having some abdominal cramping which she gets intermittently and is not concerned about nor does she wish to have any workup. Related Data Previous Rx's Medication Instructions Recorded prenat.vits,iris,nsw-gtkg-ktmac 1 tab PO DAILY #90 tab 04/27/19 Double Electric breast Pump and #1 each 06/16/19 Supplies Allergies Allergy/AdvReac Type Severity Reaction Status Date / Time No Known Drug Allergies Allergy Verified 06/15/19 08:45 Review of Systems Review of Systems ROS Unobtainable: All systems reviewed & are unremarkable except as noted in HPI and below Patient History Medical History Anxiety Asthma due to seasonal allergies Conceived by in vitro fertilization (~10/11/18) Depression Frequent UTI In vitro fertilization (~2018) Ovarian cyst conceived through in vitro fertilization Surgical History Hx of section complicating Status post breast augmentation (~2010) Status post [place] teeth extracted (~2007) Family History Grandmother Unknown family medical history Mother Acute Crohn's disease Grandfather Diabetes mellitus Cancer Grandmother Acute Crohn's disease Father Hepatitis C Brother Bipolar 1 disorder Social History marital status: number of children: 2 household members: spouse and children pets and animals: Yes (cats X 2 and dogs ) education level: college (some) occupational status: employed special [employer]uel needs: No Smoking Status: Former smoker Tobacco: How many years used: 12 second hand exposure: No ( smokes - aware and outside) alcohol intake: former (started at age 17 - stopped 10/21/2018) substance use type: does not use Smoking Status: Former smoker Substance Use Type: does not use Exam Narrative Exam Narrative: GEN: well nourished, well appearing female, alert and oriented x 3, patient appears to be in mild distress. HEENT: Atraumatic, pupils are equal round reactive to light, extraocular movements are intact, nares congested. HEART: Regular rate and rhythm without murmur, clicks, rubs. LUNGS:Lungs clear to auscultation, no wheezes, rales, crackles, chest moves symmetrically, no tachypnea accessory muscle use. ABD:bowel sounds normal, soft, non-tender, no guarding, rebound, rigidity, no masses noted, no hepatosplenomegaly MSCL: full range of motion NEURO:CN 2-12 intact, sensation normal SKIN: Rashes or other skin changes noted. Initial Vital Signs Initial Vital Signs: Vital Signs Temperature 98.2 F 10/22/20 07:55 Pulse Rate 98 H 10/22/20 07:55 Respiratory Rate 18 10/22/20 07:55 Blood Pressure 117/57 L 10/22/20 07:55 Pulse Oximetry 98 10/22/20 07:55 Course Orders Ordered: ED Orders 10/22/20 08:43 Respiratory Panel (Film Array) Stat Vital Signs Vital signs: Vital Signs - 8 hr 10/22/20 07:55 Temperature 98.2 F Pulse Rate 98 H Respiratory Rate 18 Blood Pressure 117/57 L Pulse Oximetry 98 MDM - URI/Sore Throat Lab Data Labs: Lab Results 10/22/20 Range/Units 08:43 Chlamy pneumoniae PCR Not detected (Not Detect) Adenovirus (PCR) Not detected (Not Detect) B. pertussis DNA (PCR) Not detected (Not Detecte) B.parapertussis DNA PCR Not detected (Not Detecte) Coronavirus OC43 (PCR) Not detected (Not Detect) Coronavirus HKU1 (PCR) Not detected (Not Detect) Coronavirus 229E (PCR) Not detected (Not Detect) SARS-CoV-2 (PCR) Not detected (Not Detecte) Coronavirus NL63 (PCR) Not detected (Not Detect) Human Metapneumovir PCR Not detected (Not Detect) Influenza Type A (PCR) Not detected (Not Detect) Influenza Type B (PCR) Not detected (Not Detect) M. pneumoniae (PCR) Not detected (Not Detect) Parainfluenza 1 (PCR) Not detected (Not Detect) Parainfluenza 2 (PCR) Not detected (Not Detect) Parainfluenza 3 (PCR) Not detected (Not Detect) Parainfluenza 4 (PCR) Not detected (Not Detect) RSV (PCR) Detected H (Not Detect) Entero/Rhino (PCR) Not detected (Not Detect) Discharge Plan Departure Patient Disposition: Home Clinical Impression: Respiratory syncytial virus (RSV) infection Instructions: DI for Respiratory Syncytial Virus -- Adults Activity Restrictions/Additional Instructions: Your respiratory panel today is positive for RSV which is a common viral infection. Treatment is supportive and symptomatic care. Adult usually tolerate this infection with minimal issue. If you are in close contact with others, good hand hygiene and wearing a mask around them can be helpful to prevent transmission. You may take antihistamines for congestion or if you tolerate it can take medications such as Sudafed [id number]-irhihci. Please return for new chest pain, shortness of breath lightheadedness or passing out, new swelling of your extremities, difficulty breathing or other new or concerning symptoms. Prescriptions: No Action (DME) Double Electric breast Pump and Supplies See Rx Instructions .ROUTE .MEDSUPPLY Qty: 1 RF: 0 prenat.vits,iris,hvv-ltib-vbaoj Tablet 1 tab PO DAILY Qty: 90 RF: 3 Referrals: Rod Olson MD [Primary Care Provider] - Stand Alone Forms: Work Release Note
[2020-10-22 10:55] VITALS: PULSE 72; O2SAT 98
[2020-10-22 11:00] VITALS: PULSE 84; O2SAT 98
[2020-10-22 11:01] VITALS: BP 118/80; PULSE 76; RESP 16; O2SAT 98
== END 2020-10-22 11:15 | disposition home or self-care (01) ==
PROVIDERS: Emergency Provider Emergency Medicine; PCP Oral & Maxillofacial Surgery
DX: R05 Cough (principal); B97.4 Respiratory syncytial virus as the cause of diseases classified elsewhere; Z20.822 Contact with and (suspected) exposure to COVID-19
CPT/HCPCS: 87633; 99282

== ENCOUNTER 2021-08-20 19:45 | Emergency (ER) | payer OTHER, SELFPAY ==
[2021-08-20 19:54] VITALS: BP 133/69; PULSE 81; RESP 16; TEMP 36.6; O2SAT 100; BMI 34.4
[2021-08-20 20:19] LABS: Add Manual Diff / Slide Review NO; Basophils Absolute Auto 100 /uL (0-100); Basophils Percent Auto 0.5 % (0-2); Eosinophils Absolute Auto 100 /uL (0-450); Eosinophils Percent Auto 0.4 % (2-4); Hemoglobin 13.5 g/dL (12.0-16.0); Lymphocytes Absolute Auto 2300 /uL (1100-4500); Lymphocytes Percent Auto 9.9 % (25-40); Mean Corpuscular HGB Conc 33.7 % (30-36); Mean Corpuscular Hemoglobin 30.5 PG (26-34); Mean Corpuscular Volume 90.5 fL (80-100); Monocytes Absolute Auto 1100 /uL (0-900); Monocytes Percent Auto 4.7 % (3-14); Neutrophils Absolute Auto 19600 /uL (1500-7000); Neutrophils Percent Auto 84.5 % (50-75); Platelet Count 240 X10^3/uL (150-400); Red Blood Cell Count 4.42 X10^6/uL (4.0-5.2); Red Cell Distribution Width 12.9 % (11.6-14.8); White Blood Cell Count 23.2 X10^3/uL (4.5-11.0)
[2021-08-20 20:27] LABS: Alanine Aminotransferase 22 IU/L (<35); Albumin 4.4 g/dL (3.5-5.0); Albumin Globulin Ratio 1.4 (1.0-2.8); Alkaline Phosphatase 30 U/L (38-126); Aspartate Aminotransferase 28 IU/L (14-36); BUN Creatinine Ratio 14.3 (6-22); Bilirubin Total 0.4 mg/dL (0.2-1.3); Blood Urea Nitrogen 10 mg/dL (7-17); Calcium 8.6 mg/dL (8.4-10.2); Carbon Dioxide 29 mmol/L (22-32); Chloride 104 mmol/L (98-107); Estimated Glomerular Filt Rate > 60 mL/min (>60); Globulin 3.2 g/dL (1.7-4.1); Glucose 87 mg/dL (70-100); HEMOLYSIS < 15 (0-50); Lipase 65 U/L (23-300); Potassium 3.9 mmol/L (3.4-5.1); Sodium 137 mmol/L (137-145); Total Protein 7.6 g/dL (6.3-8.2)
[2021-08-20 20:45] LABS: Bacteria Urine None Seen; Culture Indicated Urine Cult Not Indicated; Mucus Urine 2+ (Negative); RBC Urine None Seen (0-5/HPF); Squamous Epithelial Cell Urine 5-10 /HPF (0-5/HPF); WBC Urine None Seen (0-5/HPF)
--- NOTE | 2021-08-20 21:00 | DI.CT.S_ITS ---
PROCEDURE: CT ABDOMEN PELVIS W CON INDICATIONS: abd pain,elevated WBC TECHNIQUE: After the administration of IV contrast, axial sections were acquired from the lung bases to the pubic symphysis. Coronal and sagittal reformats were performed. For radiation dose reduction, the following was used: automated exposure control, adjustment of mA and/or kV according to patient size. COMPARISON: None. FINDINGS: Image quality: Excellent. Lung bases: There is mild dependent atelectasis. Heart: Heart is normal in size. ABDOMEN: Liver: No mass lesion. Gallbladder: Within normal limits without calcified gallstones. Biliary ducts: No biliary ductal dilatation. Pancreas: Unremarkable. Spleen: Normal in size. Adrenal Glands: No adrenal nodules. Kidneys and Ureters: No hydronephrosis. Stomach and Bowel: Stomach, small bowel loops, and colon are normal in caliber and wall thickness. No pericecal inflammatory changes to suggest appendicitis. There are a few colonic diverticula without acute diverticulitis. Peritoneum: There is minimal free fluid in the pelvis which appears within physiologic limits. No free air. Ventral Wall: No hernia. Abdominal Nodes: No retroperitoneal or mesenteric adenopathy by size criteria. Vessels: Aorta and inferior vena cava are normal in size. PELVIS: Pelvic Organs: Unremarkable. Bladder: Unremarkable. Pelvic Nodes: No enlarged lymph nodes. Miscellaneous: No inguinal hernias are seen. Bones: There is a small sclerotic focus within the right ischium likely representing a bone island. IMPRESSION: 1. No definite acute intra-abdominal abnormality. Specifically, no evidence of appendicitis or diverticulitis. Dictated by: Ace Taylor M.D. on 08/20/2021 at 22:15 Approved by: Ace Taylor M.D. on 08/20/2021 at 22:18
[2021-08-20 21:16] VITALS: BP 104/60
[2021-08-20 21:17] VITALS: PULSE 75; O2SAT 100
[2021-08-20 21:26] LABS: Lactate (Lactic Acid) 1.1 mmol/L (0.7-2.1)
[2021-08-20 21:34] VITALS: PULSE 84; RESP 17; O2SAT 99
[2021-08-20] MEDS: SODIUM CHLORIDE 0.9% 1,000 ML 150 ML IV (21:41)
[2021-08-20 21:44] LABS: Procalcitonin 0.04 ng/mL (<0.5)
[2021-08-20 22:00] VITALS: PULSE 79; O2SAT 99
[2021-08-20 22:30] VITALS: PULSE 79; O2SAT 99
--- NOTE | 2021-08-20 23:39 | PC.NURSE ---
Pt requesting update and whether or not she is able to drink anything or have Tylenol. Provider unavailable at this time. Provider to see pt when able.
--- NOTE | 2021-08-21 00:56 | ED.GENADULT ---
HPI - General Adult General Chief complaint: Abdominal Pain Stated complaint: lower abd pain, thinks ovarian cyst ruptured Time Seen by Provider: 08/20/21 21:23 Mode of arrival: Family Vehicle History of Present Illness HPI narrative: 35-year-old woman with acute onset of severe abdominal pain starting at 4:45 a.m. this afternoon today. She has had a burst ovarian cyst previously but this was described as significantly worse. 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 with 10/10 pain initially. Then waves of pain radiating from 5/10 up to 10/10 with a burning in the lower abdomen that she describes as ?Simmering Fredy's. She has no vomiting, diarrhea, constipation. No chest pain, fevers, palpitations, dyspnea, headaches no rashes. Related Data Previous Rx's Medication Instructions Recorded prenat.vits,iris,[id number] 1 tab PO DAILY #90 tab 04/27/19 Double Electric breast Pump and #1 each 06/16/19 Supplies Allergies Allergy/AdvReac Type Severity Reaction Status Date / Time No Known Drug Allergies Allergy Verified 08/20/21 19:57 Review of Systems Review of Systems Narrative: Remainder of complete review of systems is otherwise unremarkable except for that included in the HPI. Patient History Medical History Anxiety Asthma due to seasonal allergies Conceived by in vitro fertilization (~10/11/18) Depression Frequent UTI In vitro fertilization (~2018) Ovarian cyst conceived through in vitro fertilization Surgical History Hx of section complicating Status post breast augmentation (~2010) Status post [place] teeth extracted (~2007) Family History Grandmother Unknown family medical history Mother Acute Crohn's disease Grandfather Diabetes mellitus Cancer Grandmother Acute Crohn's disease Father Hepatitis C Brother Bipolar 1 disorder Social History marital status: number of children: 2 household members: spouse and children pets and animals: Yes (cats X 2 and dogs ) education level: college (some) occupational status: employed special jose manuel needs: No Smoking Status: Former smoker Tobacco: How many years used: 12 second hand exposure: No ( smokes - aware and outside) alcohol intake: former (started at age 17 - stopped 10/21/2018) substance use type: does not use Smoking Status: Former smoker Substance Use Type: does not use Exam Initial Vital Signs Initial Vital Signs: Vital Signs Temperature 97.9 F 08/20/21 19:54 Pulse Rate 81 08/20/21 19:54 Respiratory Rate 16 08/20/21 19:54 Blood Pressure 133/69 08/20/21 19:54 Pulse Oximetry 100 08/20/21 19:54 General: Healthy appearing, with significant abdominal pain. Able to give a complete and coherent history. Well-nourished well-developed HEENT: Moist mucous membranes, normal sclera with reactive pupils, Neck: , supple Respiratory: Lungs are clear to auscultation, no wheezing no rales no rhonchi. Full and symmetrical air movement Cardiac: Regular rate and rhythm no murmurs no bruits Abdomen: Soft, diffuse tenderness in the lower quadrants with mild rebound, no flank pain Skin: Warm and dry, no rashes Neurologic: Grossly neurologically intact with no obvious asymmetries or abnormalities Extremities: No trauma, well perfused Psych: Cooperative, appropriate insight and affect Course Orders Ordered: ED Orders 08/20/21 20:00 Urine Culture Stat Urine Microscopic Stat EKG-12 Lead Stat 08/20/21 20:05 Complete Blood Count AUTO DIFF Stat Comprehensive Metabolic Panel Stat Lactate (Lactic Acid) Stat Lipase Stat Procalcitonin Stat 08/20/21 21:00 CT abdomen pelvis w con Stat 08/20/21 21:16 Blood Culture Stat 08/21/21 02:00 CBC Auto Diff [Complete Blood Count AUTO DIFF] Stat Hydromorphone HCl (Hydromorphone 0.5 Mg Inj) 0.5 mg IV Q15MIN PRN PRN Reason: Pain, Sodium Chloride (Normal Saline 0.9%) 1,000 mls @ 150 mls/hr IV CONT LIANA Last Admin: 08/20/21 21:41 Dose: 150 mls/hr Documented by: [email or web address] Discontinued Medications Acetaminophen (Acetaminophen 325 Mg Tablet) 975 mg PO NOW ONE Stop: 08/21/21 00:59 Last Admin: 06/01/22 01:15 Dose: 975 mg Documented by: ANABELLA Ketorolac Tromethamine (Ketorolac 30 Mg/Ml Vial) 15 mg IV NOW ONE Stop: 08/21/21 00:59 Last Admin: 08/21/21 01:15 Dose: 15 mg Documented by: ANABELLA Ondansetron HCl (Ondansetron 4 Mg/2 Ml Inj) 4 mg IV NOW ONE Stop: 08/20/21 21:28 Last Admin: 08/21/21 02:08 Dose: Not Given Documented by: [email or web address] Vital Signs Vital signs: Vital Signs - 8 hr 08/20/21 19:54 08/20/21 21:16 08/20/21 21:17 Temperature 97.9 F Pulse Rate 81 75 Respiratory Rate 16 Blood Pressure 133/69 104/60 Pulse Oximetry 100 100 08/20/21 21:34 08/20/21 22:00 08/20/21 22:30 Temperature Pulse Rate 84 79 79 Respiratory Rate 17 Blood Pressure Pulse Oximetry 99 99 99 Medical Decision Making Lab Data Result diagrams: 08/21/21 02:00 08/20/21 20:05 Labs: Lab Results 08/20/21 08/20/21 08/20/21 Range/Units 20:00 20:05 20:05 WBC 23.2 H (4.5-11.0) X10^3/uL RBC 4.42 (4.0-5.2) X10^6/uL Hgb 13.5 (12.0-16.0) g/dL Hct 40.0 (36-46) % MCV 90.5 (80-100) fL MCH 30.5 (26-34) PG MCHC 33.7 (30-36) % RDW 12.9 (11.6-14.8) % Plt Count 240 (150-400) X10^3/uL Neut % (Auto) 84.5 H (50-75) % Lymph % (Auto) 9.9 L (25-40) % Door % (Auto) 4.7 (3-14) % Eos % (Auto) 0.4 L (2-4) % Baso % (Auto) 0.5 (0-2) % Neut # (Auto) 13503 H (2016-4462) /uL Lymph # (Auto) 2300 (5998-0270) /uL Door # (Auto) 1100 H (0-900) /uL Eos # (Auto) 100 (0-450) /uL Baso # (Auto) 100 (0-100) /uL Sodium 137 (137-145) mmol/L Potassium 3.9 (3.4-5.1) mmol/L Chloride 104 (98-107) mmol/L Carbon Dioxide 29 (22-32) mmol/L BUN 10 (7-17) mg/dL Creatinine 0.70 (0.52-1.04) mg/dL Estimated GFR > 60 (>60) mL/min BUN/Creatinine Ratio 14.3 (6-22) Glucose 87 (70-100) mg/dL Lactate (0.7-2.1) mmol/L Calcium 8.6 (8.4-10.2) mg/dL Total Bilirubin 0.4 (0.2-1.3) mg/dL AST 28 (14-36) IU/L ALT 22 (<35) IU/L Alkaline Phosphatase 30 L (38-126) U/L Total Protein 7.6 (6.3-8.2) g/dL Albumin 4.4 (3.5-5.0) g/dL Globulin 3.2 (1.7-4.1) g/dL Albumin/Globulin Ratio 1.4 (1.0-2.8) Lipase 65 (23-300) U/L Procalcitonin (<0.5) ng/mL Urine RBC None seen (0-5/HPF) Urine WBC None seen (0-5/HPF) Ur Squamous Epith Cells 5-10 /hpf H (0-5/HPF) Urine Bacteria None seen (None) Urine Mucus 2+ H (Negative) Ur Culture Indicated? Cult not indicated 08/20/21 08/20/21 08/21/21 Range/Units 20:05 20:05 02:00 WBC 18.3 H (4.5-11.0) X10^3/uL RBC 4.08 (4.0-5.2) X10^6/uL Hgb 12.5 (12.0-16.0) g/dL Hct 36.6 (36-46) % MCV 89.9 (80-100) fL MCH 30.7 (26-34) PG MCHC 34.1 (30-36) % RDW 12.7 (11.6-14.8) % Plt Count 205 (150-400) X10^3/uL Neut % (Auto) 82.5 H (50-75) % Lymph % (Auto) 11.9 L (25-40) % Door % (Auto) 5.0 (3-14) % Eos % (Auto) 0.2 L (2-4) % Baso % (Auto) 0.4 (0-2) % Neut # (Auto) 93973 H (2747-1138) /uL Lymph # (Auto) 2200 (9484-6043) /uL Door # (Auto) 900 (0-900) /uL Eos # (Auto) 0 (0-450) /uL Baso # (Auto) 100 (0-100) /uL Sodium (137-145) mmol/L Potassium (3.4-5.1) mmol/L Chloride (98-107) mmol/L Carbon Dioxide (22-32) mmol/L BUN (7-17) mg/dL Creatinine (0.52-1.04) mg/dL Estimated GFR (>60) mL/min BUN/Creatinine Ratio (6-22) Glucose (70-100) mg/dL Lactate 1.1 (0.7-2.1) mmol/L Calcium (8.4-10.2) mg/dL Total Bilirubin (0.2-1.3) mg/dL AST (14-36) IU/L ALT (<35) IU/L Alkaline Phosphatase (38-126) U/L Total Protein (6.3-8.2) g/dL Albumin (3.5-5.0) g/dL Globulin (1.7-4.1) g/dL Albumin/Globulin Ratio (1.0-2.8) Lipase (23-300) U/L Procalcitonin 0.04 (<0.5) ng/mL Urine RBC (0-5/HPF) Urine WBC (0-5/HPF) Ur Squamous Epith Cells (0-5/HPF) Urine Bacteria (None) Urine Mucus (Negative) Ur Culture Indicated? Point of Care Testing Test Results Negative Urine Dip Bedside Urine Glucose Negative Bedside Urine Bilirubin - Negative Bedside Urine Ketone - Negative Urine Specific [place] 1.030 Bedside Urine Occult Blood - Negative Bedside Urine pH 6.0 Bedside Urine Protein +/- 15 Bedside Urine Urobilinogen - Negative Bedside Urine Nitrite - Negative Bedside Urine Leukocytes - Negative Esterase Point of care testing: Point of Care Testing Test Results Negative Urine Dip Bedside Urine Glucose Negative Bedside Urine Bilirubin - Negative Bedside Urine Ketone - Negative Urine Specific [place] 1.030 Bedside Urine Occult Blood - Negative Bedside Urine pH 6.0 Bedside Urine Protein +/- 15 Bedside Urine Urobilinogen - Negative Bedside Urine Nitrite - Negative Bedside Urine Leukocytes - Negative Esterase Imaging Data CT scan - abdomen/pelvis: Radiologist's Impression: FINDINGS:? Image quality:? Excellent.? ? Lung bases:? There is mild dependent atelectasis.? ? Heart:? Heart is normal in size. ? ? ABDOMEN: Liver:? No mass lesion. Gallbladder:? Within normal limits without calcified gallstones.? ? Biliary ducts:? No biliary ductal dilatation.? ? Pancreas:? Unremarkable.? ? Spleen:? Normal in size.? ? Adrenal Glands:? No adrenal nodules.? ? Kidneys and Ureters:? No hydronephrosis.? ? ? Stomach and Bowel:? Stomach, small bowel loops, and colon are normal in caliber and wall thickness.? No pericecal inflammatory changes to suggest appendicitis.? There are a few colonic diverticula without acute diverticulitis. Peritoneum:? There is minimal free fluid in the pelvis which appears within physiologic limits.? No free air.? ? Ventral Wall: ? No hernia.? Abdominal Nodes:? No retroperitoneal or mesenteric adenopathy by size criteria.? Vessels:? Aorta and inferior vena cava are normal in size.? ? PELVIS: Pelvic Organs:? Unremarkable.? ? Bladder:? Unremarkable.? ? Pelvic Nodes: No enlarged lymph nodes.? Miscellaneous: No inguinal hernias are seen. ? ? ? Bones:? There is a small sclerotic focus within the right ischium likely representing a bone island. ? IMPRESSION:? ? 1.? No definite acute intra-abdominal abnormality.? Specifically, no evidence of appendicitis or diverticulitis. ? ? Dictated by: Ace Taylor M.D. on 08/20/2021 at 22:15? ?? MDM Narrative Medical decision making narrative: 35-year-old with acute onset of severe lower abdominal pain white count is elevated with a left shift however procalcitonin is normal. She has no vaginal discharge no obvious signs or symptoms of infection she is not and does not have urinary tract infection. CT scan has minimal findings including pelvic findings, absence of appendicitis diverticulitis or bowel obstruction. Once it was clear that she did not have an immediate surgical abnormalities she was given Toradol and oral Tylenol and is finding this is helping somewhat. Like to repeat her CBC to see if the leukocytosis was more de margination than anything else. If so we discussed home with pain medications and instructions to return if symptoms do not resolve or are worsening again. I did ask the radiologist to re-evaluate the CT scan. Second radiologist also agrees there is no significant pelvic abnormalities or free fluid. Second radiologist stated that he could not adequately visualize the appendix but there were no other signs of acute appendicitis. He did discuss some mild wall thickening of the proximal jejunum and suggested a possible enteritis. Her pain is in the low pelvis so this does not entirely fit clinically. Her CBC does show a trending down white blood cell count. On re-examine her pain is significantly improved, she is not febrile, tachycardic she does not have a surgical abdomen she is able to eat and drink and is able to return to the hospital should symptoms worsen. At this time will recommend home discharge with a very low threshold for returned. She understands this clearly. I have given her a take-home pack of Percocet to use for significant pain. She does have MiraLax available at home to prevent constipation should she choose to use the pain medications. At this time she is safe for home discharge Discharge Plan Departure Patient Disposition: Home Clinical Impression: Abdominal pain Instructions: DI for Abdominal Pain-Adult Activity Restrictions/Additional Instructions: Thank you for coming in today You clearly have significant abdominal pain however I did not find any obvious diagnosis for this. You do not have appendicitis, diverticulitis, a bowel obstruction, obvious masses or tumors, obvious ovarian cyst rupture or fluid in your pelvis. There is no sign of sepsis. You are not so no concerns for ectopic or ruptured ectopic . Your white blood cell count was significantly elevated. This can be a sign of infection. On repeat it was trending down slightly and in the absence of fever I do believe it is safe for you to be discharged home. Without an absolute definitive diagnosis I would have a very low threshold for returning to the emergency department if your symptoms are worsening in any way, you have any fever or your pain returns to the 10/10 level that you noticed initially. I have given you some Percocet to use when she gets home for severe pain. Please use a capful of MiraLax each day that you choose to use of Percocet to avoid any problems with constipation. Prescriptions: No Action (DME) Double Electric breast Pump and Supplies See Rx Instructions .ROUTE .MEDSUPPLY Qty: 1 0RF Rx Instructions: As directed for 99 months. prenat.vits,iris,[id number] Tablet 1 tab PO DAILY Qty: 90 3RF Referrals: Rod Olson MD [Primary Care Provider] -
[2021-08-21] MEDS: KETOROLAC 30 MG/ML VIAL 15 MG IV (01:15)
[2021-08-21] MEDS: ACETAMINOPHEN 325 MG TABLET 975 MG PO (01:15)
[2021-08-21 02:08] LABS: Add Manual Diff / Slide Review NO; Basophils Absolute Auto 100 /uL (0-100); Basophils Percent Auto 0.4 % (0-2); Eosinophils Absolute Auto 0 /uL (0-450); Eosinophils Percent Auto 0.2 % (2-4); Hematocrit 36.6 % (36-46); Hemoglobin 12.5 g/dL (12.0-16.0); Lymphocytes Absolute Auto 2200 /uL (1100-4500); Lymphocytes Percent Auto 11.9 % (25-40); Mean Corpuscular HGB Conc 34.1 % (30-36); Mean Corpuscular Hemoglobin 30.7 PG (26-34); Mean Corpuscular Volume 89.9 fL (80-100); Monocytes Absolute Auto 900 /uL (0-900); Neutrophils Absolute Auto 15100 /uL (1500-7000); Neutrophils Percent Auto 82.5 % (50-75); Platelet Count 205 X10^3/uL (150-400); Red Blood Cell Count 4.08 X10^6/uL (4.0-5.2); Red Cell Distribution Width 12.7 % (11.6-14.8); White Blood Cell Count 18.3 X10^3/uL (4.5-11.0)
[2021-08-21] MEDS: OXYCODONE/APAP 5/325 PREPACK 1 BOTTLE MISC (03:46)
[2021-08-21 03:49] VITALS: BP 130/77; PULSE 84; RESP 18; O2SAT 99
== END 2021-08-21 03:50 | disposition home or self-care (01) ==
PROVIDERS: Emergency Provider Emergency Medicine; PCP Oral & Maxillofacial Surgery
DX: R10.30 Lower abdominal pain, unspecified (principal)
CPT/HCPCS: 36415; 74177; 80053; 81003; 81015; 81025; 83605; 83690; 84145; 85025; 87040; 87086; 93005; 96374; 99284; J1885; J2405

== ENCOUNTER 2022-05-06 08:14 | Emergency (ER) | payer OTHER, SELFPAY ==
[2022-05-06] VITALS (8 sets, daily range): BP systolic 105–117; BP diastolic 56–65; PULSE 58–76; RESP 19–20; TEMP 36.7; O2SAT 97–100
--- NOTE | 2022-05-06 08:16 | ED.GENADULT ---
HPI - General Adult General Chief complaint: Abdominal Pain Stated complaint: ovarian cyst burst Time Seen by Provider: 05/06/22 08:15 History of Present Illness HPI narrative: 36-year-old female former smoker with history of ovarian cyst presents with a chief complaint of a sudden onset severe left lower quadrant pain at 6:30 a.m. this morning. She states that she went to bed in her normal state of health and even woke up in her normal state of health at about 630 felt this sudden onset of pain that intensified to be 9 of 10 and cause her to vomit once. She states it was significantly worse to move and improves with rest and over the past 2 hours has gradually improved to about a 2/3 and is now more generalized and presentation. She is had no ongoing vomiting. She denies any fever chills nor chest pain, shortness of breath or cough. She is had no dysuria, frequency or urgency. She denies any changes in bowel habits such as constipation or diarrhea. She states her last menstrual cycle was April 02 and she is frequently irregular. Her and her are attempting to get and are in the process of pursuing IVF, she denies any current medications such as Clomid. Related Data Previous Rx's Medication Instructions Recorded prenat.vits,iris,[id number] 1 tab PO DAILY #90 tabs 04/27/19 Double Electric breast Pump and #1 ea 06/16/19 Supplies ketorolac 10 mg tablet 10 mg PO Q6H PRN pain #14 tabs 05/06/22 ondansetron 4 mg disintegrating 4 mg PO TID-QID PRN nausea and 05/06/22 tablet vomiting #10 tabs Allergies Allergy/AdvReac Type Severity Reaction Status Date / Time No Known Drug Allergies Allergy Verified 05/06/22 08:27 Review of Systems Review of Systems Narrative: GENERAL: Denies chills, fatigue, malaise, fever, sweats. HEENT: Denies sinus pain, ear pain, sore throat, difficulty swallowing, dizziness. RESPIRATORY: Denies dyspnea, cough, wheezing, hemoptysis, sputum. CARDIOVASCULAR: Denies chest pain, palpitations, orthopnea, edema, GASTROINTESTINAL: See HPI : See HPI MUSCULOSKELETAL: denies weakness, joint pain, or bony pain SKIN: Denies rash, skin lesions, or other NEUROLOGIC: Denies weakness, headache, numbness, change in speech, confusion, seizures, incoordination. PSYCHIATRIC: No concerning psychosocial issues. 12 point review of systems is negative except for those stated above Patient History Medical History Anxiety Asthma due to seasonal allergies Conceived by in vitro fertilization (~10/11/18) Depression Frequent UTI In vitro fertilization (~2018) Ovarian cyst conceived through in vitro fertilization Surgical History Hx of section complicating Status post breast augmentation (~2010) Status post [place] teeth extracted (~2007) Family History Grandmother Unknown family medical history Mother Acute Crohn's disease Grandfather Diabetes mellitus Cancer Grandmother Acute Crohn's disease Father Hepatitis C Brother Bipolar 1 disorder Social History marital status: number of children: 2 household members: spouse and children pets and animals: Yes (cats X 2 and dogs ) education level: college (some) occupational status: employed special jose manuel needs: No Smoking Status: Former smoker Tobacco: How many years used: 12 second hand exposure: No ( smokes - aware and outside) alcohol intake: former (started at age 17 - stopped 10/21/2018) substance use type: does not use Smoking Status: Former smoker Substance Use Type: does not use Exam Narrative Exam Narrative: GENERAL: [36] year old patient appears stated age. Well-developed patient, in mild distress. HEAD: Atraumatic. Normocephalic. EYES: Pupils equal round and reactive. Extraocular motions intact. No scleral icterus. No injection or drainage. ENT: Nose without bleeding, purulent drainage. Throat without erythema, tonsillar hypertrophy or exudate. Airway patent. NECK: Trachea midline. Non tender CARDIOVASCULAR: Regular rate and rhythm without murmurs, gallops, or rubs. RESPIRATORY: Clear to auscultation. Breath sounds equal bilaterally. No wheezes, rales, or rhonchi. GASTROINTESTINAL: Abdomen soft, generalized tenderness, worse in the lower regions, nondistended. Bowel sounds present EXTREMITIES: No edema or joint tenderness. BACK: Nontender without deformity or crepitance. No flank tenderness. NEURO: AOx3. SKIN: No rash or erythema of visible areas Initial Vital Signs Initial Vital Signs: Vital Signs Pulse Rate 65 05/06/22 08:21 Pulse Oximetry 100 05/06/22 08:21 Course Orders Ordered: ED Orders 05/06/22 08:25 US pelvic complete Stat 05/06/22 09:00 Comprehensive Metabolic Panel Stat Discontinued Medications Sodium Chloride (Normal Saline 0.9%) 1,000 mls @ 1,000 mls/hr IV BOLUS ONE Stop: 05/06/22 09:24 Last Infusion: 05/06/22 10:30 Dose: 0 mls/hr Documented By: Admin: 05/06/22 09:09 Dose: 1,000 mls/hr Documented By: BONIFACIO Ketorolac Tromethamine (Ketorolac 30 Mg/Ml Vial) 15 mg IV NOW ONE Stop: 05/06/22 08:26 Last Admin: 05/06/22 09:15 Dose: 15 mg Documented By: BONIFACIO Ondansetron HCl (Ondansetron 4 Mg/2 Ml Inj) 4 mg IV NOW ONE Stop: 05/06/22 08:26 Last Admin: 05/06/22 09:14 Dose: 4 mg Documented By: BONIFACIO Vital Signs Vital signs: Vital Signs - 8 hr 05/06/22 08:27 05/06/22 08:21 05/06/22 09:18 Temperature 98.0 F Pulse Rate 58 L 65 66 Respiratory Rate 19 Blood Pressure 117/65 Pulse Oximetry 97 100 100 Oxygen Delivery Method Room Air 05/06/22 09:19 05/06/22 09:19 05/06/22 09:30 Temperature Pulse Rate 64 69 Respiratory Rate 20 Blood Pressure 117/62 Pulse Oximetry 100 98 Oxygen Delivery Method 05/06/22 09:31 05/06/22 09:31 05/06/22 12:07 Temperature Pulse Rate 66 76 Respiratory Rate 20 Blood Pressure 105/56 L Pulse Oximetry 98 99 Oxygen Delivery Method 05/06/22 12:08 05/06/22 12:08 Temperature Pulse Rate 73 Respiratory Rate Blood Pressure 112/65 Pulse Oximetry 99 Oxygen Delivery Method Room Air Medical Decision Making Lab Data 05/06/22 09:00 Labs: Lab Results 05/06/22 Range/Units 09:00 Sodium 139 (137-145) mmol/L Potassium 3.9 (3.4-5.1) mmol/L Chloride 102 (98-107) mmol/L Carbon Dioxide 29 (22-32) mmol/L BUN 11 (7-17) mg/dL Creatinine 0.63 (0.52-1.04) mg/dL Estimated GFR > 60 (>60) mL/min BUN/Creatinine Ratio 17.5 (6-22) Glucose 95 (70-100) mg/dL Calcium 8.8 (8.4-10.2) mg/dL Total Bilirubin 0.3 (0.2-1.3) mg/dL AST 27 (14-36) IU/L ALT 24 (<35) IU/L Alkaline Phosphatase 30 L (38-126) U/L Total Protein 7.7 (6.3-8.2) g/dL Albumin 4.3 (3.5-5.0) g/dL Globulin 3.4 (1.7-4.1) g/dL Albumin/Globulin Ratio 1.3 (1.0-2.8) Point of Care Testing Test Results Negative Urine Dip Bedside Urine Glucose Negative Bedside Urine Bilirubin - Negative Bedside Urine Ketone - Negative Urine Specific [place] 1.015 Bedside Urine Occult Blood - Negative Bedside Urine pH 7.0 Bedside Urine Protein +/- 15 Bedside Urine Urobilinogen - Negative Bedside Urine Nitrite - Negative Bedside Urine Leukocytes - Negative Esterase Point of care testing: Point of Care Testing Test Results Negative Urine Dip Bedside Urine Glucose Negative Bedside Urine Bilirubin - Negative Bedside Urine Ketone - Negative Urine Specific [place] 1.015 Bedside Urine Occult Blood - Negative Bedside Urine pH 7.0 Bedside Urine Protein +/- 15 Bedside Urine Urobilinogen - Negative Bedside Urine Nitrite - Negative Bedside Urine Leukocytes - Negative Esterase [facility] Narrative Medical decision making narrative: CC: 36-year-old female with severe left lower quadrant pain, sudden onset and greatly improved even prior to her arrival Complicating co-morbidities: Prior ovarian cysts Data collected from: Patient Medical records reviewed: Multiple prior charts in our EMR have been evaluated Differential considered, but not limited to: Urine infection, ovarian torsion, ovarian cyst, kidney stone versus other Exam documented above, pertinent findings include: Minimal pain if any, abdomen soft, bowel sounds present Lab Test results independently reviewed as above. Pertinent findings: No significant abnormalities requiring specific or immediate intervention Imaging studies independently reviewed: Ultrasound demonstrates involuting left ovarian cyst, no evidence of torsion or other significant abnormality Treatments: Fluids, Toradol, ondansetron Re-evaluations: Significant improvement Discussion: Patient with left lower quadrant pain with significant improved symptoms even prior to her arrival and further improvement with above-stated therapies. Pain is well controlled she is tolerating orals, labs are reassuring, urine shows no sign of infection and ultrasound demonstrates ovarian cyst. Disposition: see below, along with detailed discharge instructions that have been reviewed with patient as well as indications for ED re-evaluation and additional outpatient follow up Discharge Plan Departure Patient Disposition: Home Clinical Impression: Ovarian cyst Instructions: DI for Ovarian Cyst Activity Restrictions/Additional Instructions: *You have been diagnosed with [left-sided ovarian cyst] *What to do: *Please continue to take your regular medications as directed. [ x] New medication prescriptions sent to your pharmacy: [ [facility] in [place]] [ ] New medication written as a paper prescription [ ] No new medications given *Please follow up with your primary care provider in 2-3 days, call for an appointment. Let them know you were seen in the Emergency Department and that we ask that you be seen in follow up. We will electronically transmit a record of today's note if your PCP is in our system *If you do not have a primary care provider please contact the [facility] Resource line at [phone]. They will ask some questions about your medical history and help get you set up with a doctor in the community. *Return to Emergency Department if you should have any new, worsening or concerning symptoms, such as [fever greater than 101 F, shaking chills, worsening pain, persistent vomiting or other bothersome symptoms] Prescriptions: New ketorolac 10 mg tablet 10 mg PO Q6H PRN (Reason: pain) Qty: 14 0RF ondansetron 4 mg tablet,disintegrating 4 mg PO TID-QID PRN (Reason: nausea and vomiting) Qty: 10 0RF No Action (DME) Double Electric breast Pump and Supplies See Rx Instructions .ROUTE .MEDSUPPLY Qty: 1 0RF Rx Instructions: As directed for 99 months. prenat.vits,iris,[id number] Tablet 1 tab PO DAILY Qty: 90 3RF Referrals: Sally Fagan PA-C [Primary Care Provider] - Stand Alone Forms: Patient Portal/API
--- NOTE | 2022-05-06 08:25 | DI.US.S_ITS ---
PROCEDURE: US PELVIC COMPLETE INDICATIONS: SEVERE LEFT PELVIC PAIN TECHNIQUE: Real-time scanning was performed of the pelvic organs, with image documentation. Additional endovaginal scanning was necessary due to incomplete visualization of the adnexal and endometrial structures by transabdominal scanning. COMPARISON: None. FINDINGS: Uterus: Uterus is anteverted and enlarged size at 10.2 x 4.6 x 6.2 cm. The myometrium is homogeneous. The endometrium measures 10.7 mm combined thickness. Ovaries: The right ovary measures 2.8 x 3.4 x 2.2 cm, with a calculated ovarian volume of 10.9 cc. The left ovary measures 3.4 x 3.5 x 2.0 cm, with a calculated ovarian volume of 12.2 cc. Involuting hemorrhagic cyst is noted on the left measuring 1.7 x 1.1 x 1.9 cm. Other: No pathologic free abdominal or pelvic fluid. Mild dependent pelvic fluid. IMPRESSION: Involuting left hemorrhagic cyst with mild surrounding fluid. We strive to produce accurate, complete, and clear reports of imaging services. To assist us in improving patient care, this report was composed using standard report templates and voice recognition software. Therefore, it may contain abnormal punctuation, insertions and/or omissions. Occasional wrong-word or sound-alike substitutions may occur. Though we review the report and make efforts to correct it, we do recommend that the report be read carefully in proper context to recognize any text inaccuracies. Dictated by: Ana Giles M.D. on 05/06/2022 at 10:40 Approved by: Ana Giles M.D. on 05/06/2022 at 10:42
[2022-05-06] MEDS: SODIUM CHLORIDE 0.9% 1,000 ML 1000 ML IV (09:09)
[2022-05-06] MEDS: ONDANSETRON 4 MG/2 ML INJ IV (09:14)
[2022-05-06] MEDS: KETOROLAC 30 MG/ML VIAL 15 MG IV (09:15)
[2022-05-06 09:22] LABS: Alanine Aminotransferase 24 IU/L (<35); Albumin 4.3 g/dL (3.5-5.0); Albumin Globulin Ratio 1.3 (1.0-2.8); Alkaline Phosphatase 30 U/L (38-126); Aspartate Aminotransferase 27 IU/L (14-36); BUN Creatinine Ratio 17.5 (6-22); Bilirubin Total 0.3 mg/dL (0.2-1.3); Blood Urea Nitrogen 11 mg/dL (7-17); Calcium 8.8 mg/dL (8.4-10.2); Carbon Dioxide 29 mmol/L (22-32); Chloride 102 mmol/L (98-107); Estimated Glomerular Filt Rate > 60 mL/min (>60); Globulin 3.4 g/dL (1.7-4.1); Glucose 95 mg/dL (70-100); HEMOLYSIS < 15 (0-50); Potassium 3.9 mmol/L (3.4-5.1); Sodium 139 mmol/L (137-145); Total Protein 7.7 g/dL (6.3-8.2)
== END 2022-05-06 12:26 | disposition home or self-care (01) ==
PROVIDERS: Emergency Provider Emergency Medicine; PCP Physician Assistant Medical
DX: N83.202 Unspecified ovarian cyst, left side (principal)
CPT/HCPCS: 36415; 76830; 76856; 80053; 81003; 81025; 93975; 96361; 96374; 96375; 99284; J1885; J2405

== ENCOUNTER → 2023-07-16 12:29 | Outpatient (CLI) | payer OTHER, SELFPAY ==
--- NOTE | 2023-07-16 12:31 | DI.MRI.S_ITS ---
PROCEDURE: MR KNEE RT WO CON INDICATIONS: Pain in right knee TECHNIQUE: Noncontrast sagittal PD fast spin echo and T2 fast spin echo with fat saturation, sagittal 3-D FLASH with fat saturation; coronal T1 spin echo and PD fast spin echo with fat saturation, and axial PD fast spin echo with fat saturation through the knee. COMPARISON: None. FINDINGS: Image quality: Excellent. Menisci: The medial and lateral meniscus are intact. Cruciate ligaments: The anterior and posterior cruciate ligaments appear intact. Medial structures: The medial collateral ligament appears intact. The posterior oblique ligament, semimembranosus tendon insertions, oblique popliteal ligament, and meniscocapsular junction appear intact. Visualized portions of the pes anserinus tendons appear normal. No abnormal bursal fluid. Lateral structures: The lateral collateral ligament, long and short heads of the biceps femoris tendon appear intact. The popliteus tendon appears normal; the popliteofibular ligament appears intact. The posterosuperior and anteroinferior popliteomeniscal fascicles appear intact. The arcuate and fabellofibular ligaments appear intact, on either side of the lateral inferior geniculate artery. Iliotibial band appears normal. Anterior structures: The quadriceps and patellar tendon are unremarkable. Lateral tilt of the patella. The patellofemoral ligaments are intact. Bones and cartilage: Multifocal high-grade chondral fissuring in the medial patellar facet, median ridge, and the lateral patellar facet. Small subchondral cystic changes seen the lateral patella facet. High-grade chondral thinning in the medial trochlea. 1.0 cm full thickness chondral loss in the medial trochlea (series 7, image 21). Cartilage of the lateral trochlea is unremarkable. Hoffa's fat pad edema. In the medial compartment, the cartilage is unremarkable. In the lateral compartment, the cartilage is unremarkable as well. Subchondral cystic changes at the tibial eminence, reactive. Mild marrow edema of the anterior lateral tibial plateau without fracture line, likely representing mild marrow contusion. Joint space: Moderate knee effusion. No popliteal cyst. Small amount of fluid tracking along the posterolateral joint capsule. IMPRESSION: 1. Moderate chondrosis of the patellofemoral compartment with 1.0 cm full thickness chondral loss in the medial trochlea. 2. Findings suggestive of patellar maltracking with Hoffa's fat pad edema and lateral tilt of the patella. 3. Mild marrow contusion of the anterior lateral tibial plateau. 4. Moderate knee effusion. 5. Small amount of fluid tracking along the posterolateral joint capsule, concerning for capsular injury. Dictated by: Yarely Turk M.D. on 07/16/2023 at 15:08 Approved by: Yarely Turk M.D. on 07/16/2023 at 15:19
== END ==
PROVIDERS: PCP Preventive Medicine Aerospace Medicine; Referring Provider Preventive Medicine Aerospace Medicine; Visit Provider Preventive Medicine Aerospace Medicine
DX: M22.41 Chondromalacia patellae, right knee (principal); S80.01XA Contusion of right knee, initial encounter; M25.461 Effusion, right knee; M79.4 Hypertrophy of (infrapatellar) fat pad; M25.561 Pain in right knee
CPT/HCPCS: 73721

== ENCOUNTER → 2023-07-29 17:15 | Outpatient (CLI) | payer OTHER, SELFPAY ==
--- NOTE | 2023-07-29 17:17 | DI.MRI.S_ITS ---
PROCEDURE: MR KNEE LT WO CON INDICATIONS: Left knee pain TECHNIQUE: Noncontrast sagittal PD fast spin echo and T2 fast spin echo with fat saturation, sagittal 3-D FLASH with fat saturation; coronal T1 spin echo and PD fast spin echo with fat saturation, and axial PD fast spin echo with fat saturation through the knee. COMPARISON: [facility], MR, MR KNEE RT WO CON, 07/16/2023, 14:22. FINDINGS: Image quality: Excellent. Menisci: The medial and lateral menisci demonstrate normal morphology and internal signal. The meniscal root ligaments appear intact. Cruciate ligaments: The anterior cruciate ligament appears thickened with increased T2 signal intensity, suggesting chronic partial tear/mucoid degeneration. The posterior cruciate ligament is intact. Medial structures: The medial collateral ligament appears intact. The semimembranosus tendon insertions and meniscocapsular junction appear intact. Visualized portions of the pes anserinus tendons appear normal. No abnormal bursal fluid. Lateral structures: The lateral collateral ligament and the biceps femoris tendon appear intact. The popliteus tendon appears normal. Iliotibial band appears normal. Anterior structures: The quadriceps and patellar tendons appear intact. Patellar alignment is normal. No femoral trochlear dysplasia or ventral trochlear prominence. No edema in the infrapatellar fat pad. Bones and cartilage: No bone marrow contusions or fractures. Mild tricompartmental cartilage fibrillation with relatively preserved cartilage thickness. Near full-thickness cartilage fissures are noted in the medial facet of patella. Mild red marrow conversion. Joint space: There is moderate to large knee joint fluid. There is a tiny Newell's cyst. Normal appearing synovial plicae are incidentally noted. IMPRESSION: 1. Question old partial tear/scarring versus mucoid degeneration of ACL. 2. 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 Near full-thickness cartilage fissures are noted in the medial facet of patella. 3. [id number] knee joint effusion. 4. There is mild red marrow conversion. This finding is nonspecific and may be secondary to strenuous exercise, cigarette smoking, anemia or hematological disorder. Recommend clinical correlation. Dictated by: Karoline Mckeon M.D. on 07/30/2023 at 7:49 Approved by: Karoline Mckeon M.D. on 07/30/2023 at 11:45
== END ==
PROVIDERS: PCP Preventive Medicine Aerospace Medicine; Referring Provider Preventive Medicine Aerospace Medicine; Visit Provider Preventive Medicine Aerospace Medicine
DX: S80.912A Unspecified superficial injury of left knee, initial encounter (principal); M17.12 Unilateral primary osteoarthritis, left knee; M25.462 Effusion, left knee
CPT/HCPCS: 73721

== ENCOUNTER → 2025-01-02 13:16 | Outpatient (CLI) | payer OTHER, SELFPAY | PROVIDERS: PCP Preventive Medicine Aerospace Medicine; Referring Provider Chiropractor; Visit Provider Chiropractor | DX: R06.02 Shortness of breath (principal); Z87.891 Personal history of nicotine dependence | CPT/HCPCS: 94060 ==